=== PATIENT | male | born 1950 | race Caucasian/White ===

== ENCOUNTER 2017-09-05 17:43 | Inpatient (IN) | payer MEDICARE ==
[~2017-09-05] VITALS: Ht 172.7 cm; Wt 64.6 kg
[~2017-09-05 17:43] MED LIST: ABAC1TAB7 PO; ACYC-113 PO; ATOR10TA9 PO; BLOOD PRESSURE MED PO; HYDR5TAB PO; OPIU10TI2 PO; OXYB5TAB7 PO; PREG25CA PO; RITO100C PO; TEMA22.5 PO; [UNRECOGNIZED DRUG - CODE] PO; [UNRECOGNIZED DRUG - OTHER] PO
[2017-09-05] MEDS ORDERED: VANCOMYCIN 1,300 MG in SODIUM CHLORIDE 0.9% 250 ML IV ONE (18:30)
[2017-09-05] MEDS ORDERED: PHARMACOKINETIC CONSULTATION MC ONE (18:30)
[2017-09-05] MEDS ORDERED: VANCOMYCIN PER PHARMACY IV ONE (18:30)
[2017-09-05] MEDS ORDERED: SODIUM CHLORIDE 0.9% 1,000ML IVBOLUS ONE (18:30)
[2017-09-05] MEDS ORDERED: PIPERACILLIN/TAZO/PMX 3.375GM 50 ML IVPB ONE (18:30)
[2017-09-05 18:52] LABS: BASOPHILS % (AUTO) 0 % (0-1); EOSINOPHILS # (AUTO) 0.11 x10^3/uL (0-0.4); EOSINOPHILS % (AUTO) 1 % (1-7); LYMPHOCYTES # (AUTO) 1.14 x10^3/uL (1-3.4); LYMPHOCYTES % (AUTO) 11 % (22-44); MD NO; MEAN CORPUSCULAR HEMOGLOBIN 22.8 pg (27.5-34.5); MEAN CORPUSCULAR HGB CONC 31.5 g/dL (33.2-36.2); MEAN CORPUSCULAR VOLUME 72.4 fL (81-97); MEAN PLATELET VOLUME 9.4 fL (7.4-10.4); MONOCYTES # (AUTO) 1.17 x10^3/uL (0.2-0.8); MONOCYTES % (AUTO) 12 % (2-9); NEUTROPHILS # (AUTO) 7.63 x10^3/uL (1.8-6.8); NEUTROPHILS % (AUTO) 76 % (42-75); PLATELET COUNT 233 x10^3/uL (130-400); RED BLOOD COUNT 3.31 x10^6/uL (4.38-5.82); RED CELL DISTRIBUTION WIDTH 19.3 % (9.4-14.8)
[2017-09-05 19:00] LABS: INTERNATIONAL NORMALIZED RATIO 0.97 (0.93-1.1)
[2017-09-05 19:09] LABS: ANION GAP 7 mmol/L (5-15); CALCIUM 8.4 mg/dL (8.5-10.1); CHLORIDE 103 mmol/L (98-107); CREATININE 2.22 mg/dL (0.7-1.3)
[2017-09-05 19:13] LABS: MICROSCOPIC AUTO
[2017-09-05 19:15] LABS: CULTURE INDICATED? NO
[2017-09-05] MEDS ORDERED: AMLO2.5T2 PO (19:17)
[2017-09-05] MEDS ORDERED: PIPERACILLIN/TAZO/PMX 3.375GM 50 ML ONE (19:57)
[2017-09-05] MEDS ORDERED: morphine SULFATE 10 MG/ML, 1ML IVPush PRN (21:30)
[2017-09-05] MEDS ORDERED: POLYETHYLENE GLYCOL 17 GM PACKET PO PRN (21:30)
[2017-09-05] MEDS ORDERED: VANCOMYCIN PER PHARMACY MC PRN (21:30)
[2017-09-05] MEDS ORDERED: DOCUSATE 100 MG CAPSULE PO PRN (21:30)
[2017-09-05] MEDS ORDERED: ACETAMINOPHEN 325 MG TABLET PO PRN (21:30)
[2017-09-05] MEDS ORDERED: ONDANSETRON 2MG/ML, 2ML IVPush PRN (21:30)
[2017-09-05 22:45] VITALS: BP 105/57
[2017-09-05] MEDS ORDERED: PHARMACOKINETIC MONITORING MC PRN (23:30)
[2017-09-05] MEDS: SODIUM CHLORIDE 0.9% 1,000 ML IV SCH (23:39)
[2017-09-05] MEDS: HYDROcodone/APAP 5/325 TABLET PO PRN (23:39)
[2017-09-06] VITALS (7 sets, daily range): BP systolic 109–120; BP diastolic 52–65
[2017-09-06] MEDS: PIPERACILLIN/TAZO/PMX 3.375GM 50 ML IV SCH ×4 (00:56→18:27)
[2017-09-06 05:37] LABS: ANION GAP 7 mmol/L (5-15); CALCIUM 7.9 mg/dL (8.5-10.1); CHLORIDE 106 mmol/L (98-107); CREATININE 1.86 mg/dL (0.7-1.3)
[2017-09-06 05:47] LABS: MEAN CORPUSCULAR HEMOGLOBIN 22.8 pg (27.5-34.5); MEAN CORPUSCULAR HGB CONC 31.8 g/dL (33.2-36.2); MEAN CORPUSCULAR VOLUME 71.7 fL (81-97); MEAN PLATELET VOLUME 9.3 fL (7.4-10.4); PLATELET COUNT 200 x10^3/uL (130-400); RED CELL DISTRIBUTION WIDTH 19.5 % (9.4-14.8)
[2017-09-06 06:10] LABS: BASOPHILS # (AUTO) 0.03 x10^3/uL (0-0.1); BASOPHILS % (AUTO) 0 % (0-1); EOSINOPHILS # (AUTO) 0.28 x10^3/uL (0-0.4); EOSINOPHILS % (AUTO) 4 % (1-7); LYMPHOCYTES # (AUTO) 1.11 x10^3/uL (1-3.4); LYMPHOCYTES % (AUTO) 15 % (22-44); MD MORPH REVIEW ONLY; MONOCYTES # (AUTO) 1.04 x10^3/uL (0.2-0.8); MONOCYTES % (AUTO) 14 % (2-9); NEUTROPHILS # (AUTO) 4.92 x10^3/uL (1.8-6.8); NEUTROPHILS % (AUTO) 67 % (42-75)
[2017-09-06 06:11] LABS: <PLATELET ESTIMATE> ADEQUATE; <PLT MORPHOLOGY> NORMAL PLT MORPH; ANISOCYTOSIS 1+; MICROCYTOSIS 1+; POLYCHROMASIA 1+
[2017-09-06 06:12] LABS: STOMATOCYTES 1+
[2017-09-06] MEDS ORDERED: FAMOTIDINE 20 MG TABLET PO SCH (09:00)
[2017-09-06] MEDS: AMLODIPINE 2.5 MG TABLET PO SCH (09:00)
[2017-09-06] MEDS: HYDROCORTISONE 5 MG TABLET PO SCH ×2 (09:55→20:09)
[2017-09-06] MEDS: OXYBUTYNIN CHLORIDE 5 MG TABLET PO SCH (09:56)
[2017-09-06] MEDS: PREGABALIN 25 MG CAPSULE PO SCH ×2 (09:56→20:08)
[2017-09-06] MEDS: SENNA/DOCUSATE TABLET PO SCH (09:57)
[2017-09-06] MEDS: ACYCLOVIR 200 MG CAPSULE PO SCH ×2 (09:57→20:08)
[2017-09-06 15:53] LABS: MD YES; MEAN CORPUSCULAR HEMOGLOBIN 23.3 pg (27.5-34.5); MEAN CORPUSCULAR HGB CONC 31.7 g/dL (33.2-36.2); MEAN CORPUSCULAR VOLUME 73.5 fL (81-97); MEAN PLATELET VOLUME 9.5 fL (7.4-10.4); PLATELET COUNT 183 x10^3/uL (130-400); RED BLOOD COUNT 3.41 x10^6/uL (4.38-5.82); RED CELL DISTRIBUTION WIDTH 19.7 % (9.4-14.8)
[2017-09-06 15:55] LABS: <PLATELET ESTIMATE> ADEQUATE; ANISOCYTOSIS 1+; BAND#(MANUAL) 0.09 x10^3/uL; BANDS%(MANUAL) 1 % (0-7); EOS#(MANUAL) 0.37 x10^3/uL (0.0-0.4); EOS% (MANUAL) 4 % (1-7); LARGE PLATELETS 1+; LYMPH#(MANUAL) 1.29 x10^3/uL (1-3.4); LYMPHS% (MANUAL) 14 % (22-44); MICROCYTOSIS 1+; MONOS#(MANUAL) 1.29 x10^3/uL (0.3-2.7); MONOS% (MANUAL) 14 % (2-9); NRBC % (MANUAL) 1 % (0-1); POLYCHROMASIA 1+; SEG#(MANUAL) 6.16 x10^3/uL (1.8-6.8); SEGS% (MANUAL) 67 % (42-75)
[2017-09-06] MEDS: HYDROcodone/APAP 5/325 TABLET PO PRN ×2 (16:27→21:27)
[2017-09-06] MEDS: SODIUM CHLORIDE 0.9% 1,000 ML IV SCH (16:28)
[2017-09-06] MEDS ORDERED: HYDROCORTISONE 10 MG TABLET ONE (19:42)
[2017-09-06] MEDS: ATORVASTATIN 10 MG TABLET PO SCH (20:09)
[2017-09-07] MEDS: PIPERACILLIN/TAZO/PMX 3.375GM 50 ML IV SCH ×4 (00:26→18:31)
[2017-09-07 03:25] VITALS: BP 123/64
[2017-09-07] MEDS: HYDROcodone/APAP 5/325 TABLET PO PRN ×3 (04:08→20:15)
[2017-09-07 05:25] LABS: MEAN CORPUSCULAR HEMOGLOBIN 24.2 pg (27.5-34.5); MEAN CORPUSCULAR VOLUME 73.5 fL (81-97); MEAN PLATELET VOLUME 8.9 fL (7.4-10.4); PLATELET COUNT 192 x10^3/uL (130-400); RED CELL DISTRIBUTION WIDTH 20.4 % (9.4-14.8)
[2017-09-07 05:31] LABS: CALCIUM 8.3 mg/dL (8.5-10.1); CHLORIDE 105 mmol/L (98-107)
[2017-09-07 05:52] LABS: BASOPHILS # (AUTO) 0.04 x10^3/uL (0-0.1); BASOPHILS % (AUTO) 1 % (0-1); EOSINOPHILS # (AUTO) 0.38 x10^3/uL (0-0.4); EOSINOPHILS % (AUTO) 6 % (1-7); LYMPHOCYTES # (AUTO) 0.91 x10^3/uL (1-3.4); LYMPHOCYTES % (AUTO) 13 % (22-44); MD SCAN; MONOCYTES # (AUTO) 0.96 x10^3/uL (0.2-0.8); MONOCYTES % (AUTO) 14 % (2-9); NEUTROPHILS # (AUTO) 4.59 x10^3/uL (1.8-6.8); NEUTROPHILS % (AUTO) 67 % (42-75)
[2017-09-07 05:57] LABS: ALBUMIN 2.4 g/dL (3.4-5.0); ANION GAP 10 mmol/L (5-15); CREATININE 1.76 mg/dL (0.7-1.3)
[2017-09-07 07:29] VITALS: BP 114/61
[2017-09-07] MEDS ORDERED: POTASSIUM CHLORIDE 20 MEQ TAB.ER.PRT PO ONE (07:30)
[2017-09-07] MEDS ORDERED: HYDROCORTISONE 10 MG TABLET ONE ×2 (07:50→20:10)
[2017-09-07] MEDS: PREGABALIN 25 MG CAPSULE PO SCH ×2 (07:55→20:15)
[2017-09-07] MEDS: FAMOTIDINE 20 MG TABLET PO SCH (07:55)
[2017-09-07] MEDS: OXYBUTYNIN CHLORIDE 5 MG TABLET PO SCH (07:55)
[2017-09-07] MEDS: FERROUS SULFATE 325 MG TABLET PO SCH ×2 (07:55→20:15)
[2017-09-07] MEDS: ACYCLOVIR 200 MG CAPSULE PO SCH ×2 (07:55→20:15)
[2017-09-07] MEDS: AMLODIPINE 2.5 MG TABLET PO SCH (07:56)
[2017-09-07] MEDS: HYDROCORTISONE 5 MG TABLET PO SCH ×2 (07:56→20:16)
[2017-09-07] MEDS ORDERED: ABACAVIR SULFATE PO SCH (09:00)
[2017-09-07] MEDS ORDERED: LAMIVUDINE PO SCH (09:00)
[2017-09-07] MEDS: SENNA/DOCUSATE TABLET PO SCH (09:00)
[2017-09-07 09:54] LABS: OCCULT BLOOD POSITIVE (NEGATIVE)
[2017-09-07] MEDS: VANCOMYCIN 1,400 MG in SODIUM CHLORIDE 0.9% 250 ML IV SCH (10:28)
[2017-09-07 14:13] VITALS: BP 104/54
[2017-09-07 19:40] VITALS: BP 130/70
[2017-09-07] MEDS: ATORVASTATIN 10 MG TABLET PO SCH (20:15)
[2017-09-08] MEDS: PIPERACILLIN/TAZO/PMX 3.375GM 50 ML IV SCH ×4 (00:22→18:03)
[2017-09-08 02:16] VITALS: BP 118/67
[2017-09-08] MEDS: HYDROcodone/APAP 5/325 TABLET PO PRN ×2 (05:41→20:40)
[2017-09-08 06:08] LABS: BASOPHILS # (AUTO) 0.02 x10^3/uL (0-0.1); BASOPHILS % (AUTO) 0 % (0-1); EOSINOPHILS # (AUTO) 0.32 x10^3/uL (0-0.4); EOSINOPHILS % (AUTO) 4 % (1-7); LYMPHOCYTES # (AUTO) 0.91 x10^3/uL (1-3.4); LYMPHOCYTES % (AUTO) 12 % (22-44); MD NO; MEAN CORPUSCULAR HEMOGLOBIN 23.5 pg (27.5-34.5); MEAN CORPUSCULAR HGB CONC 31.6 g/dL (33.2-36.2); MEAN CORPUSCULAR VOLUME 74.5 fL (81-97); MEAN PLATELET VOLUME 9.3 fL (7.4-10.4); MONOCYTES # (AUTO) 1.01 x10^3/uL (0.2-0.8); MONOCYTES % (AUTO) 13 % (2-9); NEUTROPHILS # (AUTO) 5.59 x10^3/uL (1.8-6.8); NEUTROPHILS % (AUTO) 71 % (42-75); PLATELET COUNT 247 x10^3/uL (130-400); RED BLOOD COUNT 3.77 x10^6/uL (4.38-5.82); RED CELL DISTRIBUTION WIDTH 20.5 % (9.4-14.8)
[2017-09-08 06:13] LABS: ALBUMIN 2.8 g/dL (3.4-5.0); ANION GAP 6 mmol/L (5-15); CALCIUM 8.6 mg/dL (8.5-10.1); CHLORIDE 104 mmol/L (98-107); CREATININE 1.63 mg/dL (0.7-1.3)
[2017-09-08 06:52] VITALS: BP 93/56
[2017-09-08] MEDS: SENNA/DOCUSATE TABLET PO SCH (09:00)
[2017-09-08] MEDS: RITONAVIR 100 MG TABLET PO SCH ×2 (10:58→21:31)
[2017-09-08] MEDS: AMLODIPINE 2.5 MG TABLET PO SCH (10:59)
[2017-09-08] MEDS: ABACAVIR SULFATE PO SCH (10:59)
[2017-09-08] MEDS: ACYCLOVIR 200 MG CAPSULE PO SCH ×2 (10:59→20:35)
[2017-09-08] MEDS: LAMIVUDINE PO SCH (10:59)
[2017-09-08] MEDS: FAMOTIDINE 20 MG TABLET PO SCH (10:59)
[2017-09-08] MEDS: FERROUS SULFATE 325 MG TABLET PO SCH ×2 (10:59→20:35)
[2017-09-08] MEDS: PREGABALIN 25 MG CAPSULE PO SCH ×2 (10:59→20:35)
[2017-09-08] MEDS ORDERED: HYDROCORTISONE 10 MG TABLET ONE ×2 (11:01→20:33)
[2017-09-08] MEDS: HYDROCORTISONE 5 MG TABLET PO SCH ×2 (11:01→20:36)
[2017-09-08 12:05] VITALS: BP 118/75
[2017-09-08] MEDS: DARUNAVIR 800 MG TABLET PO SCH (12:11)
[2017-09-08 18:36] VITALS: BP 111/70
[2017-09-08] MEDS: ATORVASTATIN 10 MG TABLET PO SCH (20:35)
[2017-09-08] MEDS: VANCOMYCIN 1,400 MG in SODIUM CHLORIDE 0.9% 250 ML IV SCH (23:13)
[2017-09-09] MEDS: PIPERACILLIN/TAZO/PMX 3.375GM 50 ML IV SCH ×4 (01:07→23:40)
[2017-09-09 03:58] VITALS: BP 127/71
[2017-09-09 05:07] LABS: BASOPHILS # (AUTO) 0.05 x10^3/uL (0-0.1); BASOPHILS % (AUTO) 1 % (0-1); EOSINOPHILS # (AUTO) 0.25 x10^3/uL (0-0.4); EOSINOPHILS % (AUTO) 3 % (1-7); LYMPHOCYTES # (AUTO) 1.12 x10^3/uL (1-3.4); LYMPHOCYTES % (AUTO) 15 % (22-44); MD NO; MEAN CORPUSCULAR HEMOGLOBIN 23.4 pg (27.5-34.5); MEAN CORPUSCULAR HGB CONC 31.7 g/dL (33.2-36.2); MEAN PLATELET VOLUME 9.1 fL (7.4-10.4); MONOCYTES # (AUTO) 0.98 x10^3/uL (0.2-0.8); MONOCYTES % (AUTO) 13 % (2-9); NEUTROPHILS # (AUTO) 5.06 x10^3/uL (1.8-6.8); NEUTROPHILS % (AUTO) 68 % (42-75); PLATELET COUNT 262 x10^3/uL (130-400); RED BLOOD COUNT 3.84 x10^6/uL (4.38-5.82); RED CELL DISTRIBUTION WIDTH 20.6 % (9.4-14.8)
[2017-09-09 05:27] LABS: CHLORIDE 107 mmol/L (98-107)
[2017-09-09 06:19] LABS: ALBUMIN 2.6 g/dL (3.4-5.0); ANION GAP 13 mmol/L (5-15); CALCIUM 9.3 mg/dL (8.5-10.1); CREATININE 1.72 mg/dL (0.7-1.3)
[2017-09-09] MEDS: FAMOTIDINE 20 MG TABLET PO SCH (09:00)
[2017-09-09] MEDS: SENNA/DOCUSATE TABLET PO SCH (09:00)
[2017-09-09] MEDS: AMLODIPINE 2.5 MG TABLET PO SCH (09:00)
[2017-09-09] MEDS: PREGABALIN 25 MG CAPSULE PO SCH ×2 (09:00→20:18)
[2017-09-09 09:13] VITALS: BP 129/72
[2017-09-09] MEDS ORDERED: PROPOFOL 10 MG/ML, 20ML ONE (13:24)
[2017-09-09] MEDS ORDERED: ONDANSETRON 2MG/ML, 2ML ONE (13:53)
[2017-09-09] MEDS ORDERED: PROMETHAZINE 25 MG/ML, 1ML ONE (14:03)
[2017-09-09 14:25] VITALS: BP 127/75
[2017-09-09] MEDS ORDERED: PROMETHAZINE 25 MG/ML, 1ML IV PRN (14:30)
[2017-09-09 16:08] LABS: ALBUMIN 2.9 g/dL (3.4-5.0); ANION GAP 9 mmol/L (5-15); CALCIUM 9.1 mg/dL (8.5-10.1); CHLORIDE 104 mmol/L (98-107); CREATININE 1.71 mg/dL (0.7-1.3)
[2017-09-09] MEDS ORDERED: HYDROCORTISONE 10 MG TABLET ONE ×3 (17:02→20:12)
[2017-09-09] MEDS: FERROUS SULFATE 325 MG TABLET PO SCH ×2 (17:28→20:17)
[2017-09-09] MEDS: ACYCLOVIR 200 MG CAPSULE PO SCH ×2 (17:28→20:18)
[2017-09-09] MEDS: HYDROcodone/APAP 5/325 TABLET PO PRN ×2 (17:28→23:44)
[2017-09-09] MEDS: DARUNAVIR 800 MG TABLET PO SCH (17:28)
[2017-09-09] MEDS: RITONAVIR 100 MG TABLET PO SCH ×2 (17:29→20:19)
[2017-09-09] MEDS: HYDROCORTISONE 5 MG TABLET PO SCH ×2 (17:30→20:17)
[2017-09-09 19:11] VITALS: BP 105/60
[2017-09-09] MEDS: ATORVASTATIN 10 MG TABLET PO SCH (20:17)
[2017-09-10 00:12] LABS: MICROSCOPIC INDICATED
[2017-09-10 02:23] VITALS: BP 133/69
[2017-09-10] MEDS: PIPERACILLIN/TAZO/PMX 3.375GM 50 ML IV SCH ×2 (05:23→12:48)
[2017-09-10 05:58] LABS: BASOPHILS # (AUTO) 0.07 x10^3/uL (0-0.1); BASOPHILS % (AUTO) 1 % (0-1); EOSINOPHILS # (AUTO) 0.26 x10^3/uL (0-0.4); EOSINOPHILS % (AUTO) 4 % (1-7); LYMPHOCYTES # (AUTO) 1.38 x10^3/uL (1-3.4); LYMPHOCYTES % (AUTO) 23 % (22-44); MD NO; MEAN CORPUSCULAR HEMOGLOBIN 23.1 pg (27.5-34.5); MEAN CORPUSCULAR HGB CONC 31.1 g/dL (33.2-36.2); MEAN CORPUSCULAR VOLUME 74.3 fL (81-97); MEAN PLATELET VOLUME 8.6 fL (7.4-10.4); MONOCYTES # (AUTO) 0.74 x10^3/uL (0.2-0.8); MONOCYTES % (AUTO) 12 % (2-9); NEUTROPHILS # (AUTO) 3.64 x10^3/uL (1.8-6.8); NEUTROPHILS % (AUTO) 60 % (42-75); PLATELET COUNT 299 x10^3/uL (130-400); RED BLOOD COUNT 3.88 x10^6/uL (4.38-5.82); RED CELL DISTRIBUTION WIDTH 20.6 % (9.4-14.8)
[2017-09-10 06:57] LABS: ALBUMIN 2.8 g/dL (3.4-5.0); ANION GAP 10 mmol/L (5-15); CALCIUM 8.8 mg/dL (8.5-10.1); CHLORIDE 106 mmol/L (98-107); CREATININE 1.74 mg/dL (0.7-1.3)
[2017-09-10 07:56] VITALS: BP 125/70
[2017-09-10] MEDS ORDERED: HYDROCORTISONE 10 MG TABLET ONE (08:52)
[2017-09-10] MEDS: FERROUS SULFATE 325 MG TABLET PO SCH (08:59)
[2017-09-10] MEDS: RITONAVIR 100 MG TABLET PO SCH (08:59)
[2017-09-10] MEDS: ACYCLOVIR 200 MG CAPSULE PO SCH (08:59)
[2017-09-10] MEDS: FAMOTIDINE 20 MG TABLET PO SCH (08:59)
[2017-09-10] MEDS: DARUNAVIR 800 MG TABLET PO SCH (08:59)
[2017-09-10] MEDS: PREGABALIN 25 MG CAPSULE PO SCH (08:59)
[2017-09-10] MEDS: AMLODIPINE 2.5 MG TABLET PO SCH (08:59)
[2017-09-10] MEDS: SENNA/DOCUSATE TABLET PO SCH (09:00)
[2017-09-10] MEDS: LAMIVUDINE PO SCH (09:00)
[2017-09-10] MEDS: ABACAVIR SULFATE PO SCH (09:00)
[2017-09-10] MEDS: HYDROCORTISONE 5 MG TABLET PO SCH (09:01)
[2017-09-10] MEDS: VANCOMYCIN 1,400 MG in SODIUM CHLORIDE 0.9% 250 ML IV SCH (10:39)
[2017-09-10] MEDS ORDERED: LEVOFLOXACIN 250 MG TABLET PO SCH (13:00)
[2017-09-10] MEDS ORDERED: LEVO250T23 PO (13:15)
[2017-09-10] MEDS ORDERED: OMEP20TA9 PO (13:15)
[2017-09-10] MEDS ORDERED: FERR-51 PO (13:15)
[2017-09-10 13:30] VITALS: BP 104/48
== END 2017-09-10 17:15 | DRG 974 ==
LOC: ED 20:06 → EDIP 21:09 → 4NOR 22:45
PROVIDERS: ADMIT Family Medicine; ATTEND Family Medicine
PROC: 0T9B70Z Drainage of Bladder with Drainage Device, Via Natural or Artificial Opening (ICD-10-PCS; principal; 2017-09-05)
PROC: 30233N1 Transfusion of Nonautologous Red Blood Cells into Peripheral Vein, Percutaneous Approach (ICD-10-PCS; 2017-09-06)
PROC: 0DB98ZX Excision of Duodenum, Via Natural or Artificial Opening Endoscopic, Diagnostic (ICD-10-PCS; 2017-09-09)
PROC: 0DB68ZX Excision of Stomach, Via Natural or Artificial Opening Endoscopic, Diagnostic (ICD-10-PCS; 2017-09-09)
DX: A41.9 Sepsis, unspecified organism (principal); J96.01 Acute respiratory failure with hypoxia; B20 Human immunodeficiency virus [HIV] disease; E43 Unspecified severe protein-calorie malnutrition; J15.9 Unspecified bacterial pneumonia; N18.4 Chronic kidney disease, stage 4 (severe); E27.40 Unspecified adrenocortical insufficiency; K92.2 Gastrointestinal hemorrhage, unspecified; F03.90 Unspecified dementia, unspecified severity, without behavioral disturbance, psychotic disturbance, mood disturbance, and anxiety; E78.5 Hyperlipidemia, unspecified; H54.7 Unspecified visual loss; I12.9 Hypertensive chronic kidney disease with stage 1 through stage 4 chronic kidney disease, or unspecified chronic kidney disease; K21.9 Gastro-esophageal reflux disease without esophagitis; K31.7 Polyp of stomach and duodenum; R13.10 Dysphagia, unspecified; R31.29 Other microscopic hematuria; Z66 Do not resuscitate; Z96.611 Presence of right artificial shoulder joint; D50.9 Iron deficiency anemia, unspecified; Z68.21 Body mass index [BMI] 21.0-21.9, adult
CPT/HCPCS: 36415; 36430; 51702; 71045; 78582; 80048; 80202; 81001; 82040; 82272; 82274; 82728; 82962; 83540; 83550; 83605; 83615; 83735; 84466; 85025; 85610; 85730; 86361; 86850; 86900; 86923; 87040; 88305; 93005; J2405; J2543; J2550; J2704; J3370; A9540; A9558; C9898; J2270; J7030; J7050; P9016

== ENCOUNTER 2018-10-28 10:57 | Outpatient (CLI) | payer MEDICARE ==
[~2018-10-28] VITALS: Ht 172.7 cm; Wt 68.1 kg
[2018-10-28 14:22] VITALS: BP 121/72
== END 2018-10-28 23:59 | disposition home or self-care (01) ==
LOC: INFUSION 10:57
PROVIDERS: ATTEND Nurse Practitioner Gerontology
DX: E61.1 Iron deficiency (principal); D64.9 Anemia, unspecified; B20 Human immunodeficiency virus [HIV] disease; K21.9 Gastro-esophageal reflux disease without esophagitis; E78.5 Hyperlipidemia, unspecified; I12.9 Hypertensive chronic kidney disease with stage 1 through stage 4 chronic kidney disease, or unspecified chronic kidney disease; N18.4 Chronic kidney disease, stage 4 (severe); E78.00 Pure hypercholesterolemia, unspecified; Z96.611 Presence of right artificial shoulder joint
CPT/HCPCS: 96365; J1439; J7050

== ENCOUNTER 2018-11-04 07:43 | Outpatient (CLI) | payer MEDICARE ==
[~2018-11-04] VITALS: Ht 172.7 cm; Wt 68.1 kg
[~2018-11-04 07:43] MED LIST changes: +AMLO2.5T2 PO; +FERR-51 PO; +LEVO250T23 PO; +OMEP20TA9 PO
[2018-11-04 11:00] VITALS: BP 109/58
[2018-11-04] MEDS ORDERED: FERRIC CARBOXYMALTOSE 750 MG in SODIUM CHLORIDE 0.9% 250 ML IV ONE (11:30)
== END 2018-11-04 23:59 | disposition home or self-care (01) ==
LOC: INFUSION 07:43
PROVIDERS: ATTEND Nurse Practitioner Gerontology
DX: D64.9 Anemia, unspecified (principal); E61.1 Iron deficiency; B20 Human immunodeficiency virus [HIV] disease; I12.9 Hypertensive chronic kidney disease with stage 1 through stage 4 chronic kidney disease, or unspecified chronic kidney disease; N18.4 Chronic kidney disease, stage 4 (severe); K21.9 Gastro-esophageal reflux disease without esophagitis; E78.5 Hyperlipidemia, unspecified; E78.00 Pure hypercholesterolemia, unspecified; Z96.611 Presence of right artificial shoulder joint
CPT/HCPCS: 96365; J1439; J7050

== ENCOUNTER 2019-02-01 10:36 | Emergency (ER) | payer MEDICARE ==
[~2019-02-01] VITALS: Ht 172.7 cm; Wt 65.0 kg
[~2019-02-01 10:36] MED LIST changes: +OXYB5TAB10 PO; -OXYB5TAB7 PO; +[UNRECOGNIZED DRUG - CODE] PO; -[UNRECOGNIZED DRUG - CODE] PO
--- NOTE | 2019-02-01 10:53 | NUR ---
CODE 250. PT HAD MGLF AT FRONT. NO DZY/LOC. LAC ON R LEG. PT'S AOX4. RESPS EVEN AND UNLABORED. +HIV. HX OF STROKE WITH LEFT SIDED WEAKNESS. ALL MONITORS IN PLACE. CALL LIGHT WITHIN REACH. EKG DONE AT BEDSIDE BY EMT. EDMD AT BEDSIDE TO EVALUATE AT THIS TIME.
[2019-02-01] MEDS ORDERED: LIDOCAINE-MPF 1%, 5ML ONE (11:45)
[2019-02-01] MEDS ORDERED: NEOSPORIN OINT. PKT 1 PACKET ONE (11:55)
[2019-02-01] MEDS ORDERED: FERRIC CARBOXYMALTOSE 750 MG in SODIUM CHLORIDE 0.9% 250 ML IV ONE (12:00)
[2019-02-01] MEDS ORDERED: LIDOCAINE 1%, 10ML INFIL ONE (12:00)
--- NOTE | 2019-02-01 12:23 | NUR ---
THIS RN WAS NOT ABLE TO EST IV. CONOR RN IS TRYING TO EST IV AT THIS TIME.
[2019-02-01 12:40] VITALS: BP 147/69
--- NOTE | 2019-02-01 12:49 | NUR ---
BREAK RN FOR PRIMARY RN DANIEL. PT RESTING IN POSITION OF COMFORT. ALL NEEDS MET AND ADDRESSED. IV MEDICATION INFUSING PER ORDER ON IV PUMP. VSS. NSR ON MONITOR. CALL LIGHT IN REACH. FALL PRECAUTIONS IN PLACE.
--- NOTE | 2019-02-01 13:22 | NUR ---
BEDSIDE REPORT AND CARE BACK TO PRIMARY RN DANIEL
--- NOTE | 2019-02-01 13:32 | NUR ---
Patient given discharge instructions and they have confirmed that they understand the instructions. Patient ambulatory with steady gait with pt's service dog.
== END 2019-02-01 13:34 | disposition home or self-care (01) ==
LOC: ED 13:32
DX: S81.811A Laceration without foreign body, right lower leg, initial encounter (principal); I10 Essential (primary) hypertension; H54.7 Unspecified visual loss; Z87.891 Personal history of nicotine dependence; W22.09XA Striking against other stationary object, initial encounter; Y93.89 Activity, other specified; Y92.009 Unspecified place in unspecified non-institutional (private) residence as the place of occurrence of the external cause; Y99.8 Other external cause status
CPT/HCPCS: 12031; 73590; 93005; 96365; 99284; J1439; J7050

== ENCOUNTER 2019-03-18 05:08 | Emergency (ER) | payer MEDICARE ==
[~2019-03-18] VITALS: Ht 172.7 cm; Wt 70.0 kg
[2019-03-18] MEDS ORDERED: DIPH,PERTUSS(ACELL),TET VAC/PF 0.5 ML IM-VACC ONE ×2 (05:24→05:30)
[2019-03-18] MEDS ORDERED: LIDOCAINE-MPF 1%, 5ML ONE (05:24)
[2019-03-18] MEDS ORDERED: LIDOCAINE-MPF 1%, 5ML INFIL ONE (05:30)
[2019-03-18] MEDS ORDERED: NEOSPORIN OINT. PKT 1 PACKET ONE (06:14)
--- NOTE | 2019-03-18 06:33 | NUR ---
WOUND BANDAGED. PT EXTENSIVELY EDUCATED ON WOUND CARE DUE TO HIS MEDICAL HX. PT ABLE TO REPEAT BACK WOUND CARE TEACHINGS.
[2019-03-18 06:37] VITALS: BP 139/84
--- NOTE | 2019-03-18 06:44 | NUR ---
report from OCTAVIO Cabrera. pt resting in room. no needs expressed. call light within reach. awaiting dc paperwork.
[2019-03-26] MEDS ORDERED: NEVI400T5 PO (14:12)
[2019-03-26] MEDS ORDERED: DARU800T2 PO (14:14)
[2019-03-27] MEDS ORDERED: LINE600T12 PO (13:05)
[2019-03-27] MEDS ORDERED: AMOX1TAB61 PO (13:12)
== END 2019-03-18 07:37 | disposition home or self-care (01) ==
LOC: ED 06:50
DX: S61.412A Laceration without foreign body of left hand, initial encounter (principal); I10 Essential (primary) hypertension; E78.00 Pure hypercholesterolemia, unspecified; K21.9 Gastro-esophageal reflux disease without esophagitis; X58.XXXA Exposure to other specified factors, initial encounter; Y93.89 Activity, other specified; Y92.89 Other specified places as the place of occurrence of the external cause; Y99.8 Other external cause status
CPT/HCPCS: 13132; 13133; 90471; 90715; 99283; 99285

== ENCOUNTER 2019-04-04 21:43 | Inpatient (IN) | payer MEDICARE ==
[~2019-04-04] VITALS: Ht 172.7 cm; Wt 62.6 kg
[~2019-04-04 21:43] MED LIST changes: +AMOX1TAB61 PO; +DARU800T2 PO; +LINE600T12 PO; +NEVI400T5 PO
[2019-04-04 22:13] LABS: MEAN CORPUSCULAR HEMOGLOBIN 33.1 pg (27.5-34.5); MEAN CORPUSCULAR HGB CONC 33.3 g/dL (33.2-36.2); MEAN CORPUSCULAR VOLUME 99.4 fL (81-97); MEAN PLATELET VOLUME 7.9 fL (7.4-10.4); PLATELET COUNT 320 x10^3/uL (130-400); RED BLOOD COUNT 3.99 x10^6/uL (4.38-5.82); RED CELL DISTRIBUTION WIDTH 22.4 % (9.4-14.8)
[2019-04-04 22:24] LABS: ALANINE AMINOTRANSFERASE 30 U/L (12-78); ALBUMIN 3.5 g/dL (3.4-5.0); ANION GAP 8 mmol/L (5-15); CALCIUM 9.3 mg/dL (8.5-10.1); CHLORIDE 102 mmol/L (98-107); CREATININE 2.59 mg/dL (0.7-1.3)
[2019-04-04 22:29] LABS: ALKALINE PHOSPHATASE 81 U/L (45-117); BILIRUBIN,TOTAL 0.5 mg/dL (0.2-1.0); TOTAL PROTEIN 7.6 g/dL (6.4-8.2); TROPONIN I < 0.015 ng/mL (0.000-0.045)
[2019-04-04 22:34] LABS: BASOPHILS # (AUTO) 0.04 x10^3/uL (0-0.1); BASOPHILS % (AUTO) 0 % (0-1); EOSINOPHILS # (AUTO) 0.01 x10^3/uL (0-0.4); EOSINOPHILS % (AUTO) 0 % (1-7); LYMPHOCYTES # (AUTO) 1.71 x10^3/uL (1-3.4); LYMPHOCYTES % (AUTO) 13 % (22-44); MD SCAN; MONOCYTES # (AUTO) 0.67 x10^3/uL (0.2-0.8); MONOCYTES % (AUTO) 5 % (2-9); NEUTROPHILS # (AUTO) 11.03 x10^3/uL (1.8-6.8); NEUTROPHILS % (AUTO) 82 % (42-75)
[2019-04-04] MEDS ORDERED: SODIUM CHLORIDE 0.9% 1,000 ML IV ONE (23:21)
[2019-04-04] MEDS ORDERED: ONDANSETRON 2MG/ML, 2ML IVPush PRN (23:30)
[2019-04-05] MEDS ORDERED: SODIUM CHLORIDE 0.9% 1,000 ML IV SCH (00:12)
[2019-04-05] MEDS ORDERED: PHARMACY MAY ADJ FOR RENAL FX MC PRN (00:30)
[2019-04-05] MEDS ORDERED: BISACODYL 10 MG SUPP PR PRN (00:30)
[2019-04-05] MEDS ORDERED: hydrALAzine 20 MG/ML, 1ML IVPush PRN (00:30)
[2019-04-05] MEDS ORDERED: LIDODERM 5% PATCH TD PRN (00:30)
[2019-04-05] MEDS ORDERED: ACETAMINOPHEN 325 MG TABLET PO PRN (00:30)
[2019-04-05] MEDS ORDERED: ONDANSETRON 2MG/ML, 2ML IVPush PRN (00:30)
[2019-04-05 00:40] VITALS: BP 121/77
[2019-04-05] MEDS: MORPHINE SULFATE 4 MG/ML, 1ML IVPush PRN ×2 (01:02→08:04)
[2019-04-05] MEDS: LINEZOLID PMX 600MG/300ML 300 ML IV SCH ×2 (01:02→12:37)
[2019-04-05 04:40] LABS: MICROSCOPIC NOT IND
[2019-04-05 04:43] LABS: CULTURE INDICATED? NO
[2019-04-05 06:57] VITALS: BP 127/78
[2019-04-05] MEDS ORDERED: ROCURONIUM 10MG/ML,5ML ONE (10:14)
[2019-04-05] MEDS ORDERED: PROPOFOL 10 MG/ML, 20ML ONE (10:14)
[2019-04-05] MEDS ORDERED: FENTANYL PF 100 MCG/2ML ONE (10:17)
[2019-04-05] MEDS ORDERED: ONDANSETRON 2MG/ML, 2ML ONE (10:41)
[2019-04-05] MEDS ORDERED: EPHEDRINE 50 MG/ML, 1ML ONE (10:41)
[2019-04-05] MEDS ORDERED: PHENYLEPHRINE 10 MG/ML ONE (10:41)
[2019-04-05] MEDS: morphine SULFATE 10 MG/ML, 1ML IVPush PRN ×3 (12:38→19:37)
[2019-04-05 13:11] VITALS: BP 126/81
[2019-04-05] MEDS: SODIUM CHLORIDE 0.9% 1,000 ML IV SCH (15:51)
[2019-04-05 20:43] VITALS: BP 124/67
[2019-04-06] MEDS: LINEZOLID PMX 600MG/300ML 300 ML IV SCH ×2 (00:23→12:16)
[2019-04-06 00:48] VITALS: BP 120/67
[2019-04-06] MEDS: SODIUM CHLORIDE 0.9% 1,000 ML IV SCH ×3 (03:08→21:38)
[2019-04-06] MEDS: morphine SULFATE 10 MG/ML, 1ML IVPush PRN (04:54)
[2019-04-06 05:14] LABS: MEAN CORPUSCULAR HEMOGLOBIN 33.1 pg (27.5-34.5); MEAN CORPUSCULAR HGB CONC 32.8 g/dL (33.2-36.2); MEAN CORPUSCULAR VOLUME 100.8 fL (81-97); MEAN PLATELET VOLUME 8.1 fL (7.4-10.4); PLATELET COUNT 231 x10^3/uL (130-400); RED CELL DISTRIBUTION WIDTH 22.2 % (9.4-14.8)
[2019-04-06 05:24] LABS: ANION GAP 6 mmol/L (5-15); CHLORIDE 105 mmol/L (98-107); CREATININE 1.76 mg/dL (0.7-1.3)
[2019-04-06 05:49] LABS: BASOPHILS # (AUTO) 0.04 x10^3/uL (0-0.1); BASOPHILS % (AUTO) 0 % (0-1); EOSINOPHILS # (AUTO) 0.05 x10^3/uL (0-0.4); EOSINOPHILS % (AUTO) 1 % (1-7); LYMPHOCYTES # (AUTO) 1.25 x10^3/uL (1-3.4); LYMPHOCYTES % (AUTO) 12 % (22-44); MD SCAN; MONOCYTES # (AUTO) 0.55 x10^3/uL (0.2-0.8); MONOCYTES % (AUTO) 5 % (2-9); NEUTROPHILS # (AUTO) 8.36 x10^3/uL (1.8-6.8); NEUTROPHILS % (AUTO) 82 % (42-75)
[2019-04-06 09:11] VITALS: BP 117/74
[2019-04-06 14:56] VITALS: BP 126/76
[2019-04-06 21:44] VITALS: BP 148/79
[2019-04-07 01:37] VITALS: BP 150/76
[2019-04-07] MEDS: SODIUM CHLORIDE 0.9% 1,000 ML IV SCH (05:20)
[2019-04-07 05:24] LABS: BASOPHILS # (AUTO) 0.03 x10^3/uL (0-0.1); BASOPHILS % (AUTO) 0 % (0-1); EOSINOPHILS # (AUTO) 0.03 x10^3/uL (0-0.4); EOSINOPHILS % (AUTO) 0 % (1-7); LYMPHOCYTES # (AUTO) 1.39 x10^3/uL (1-3.4); LYMPHOCYTES % (AUTO) 15 % (22-44); MD NO; MEAN CORPUSCULAR HEMOGLOBIN 33.2 pg (27.5-34.5); MEAN CORPUSCULAR HGB CONC 32.9 g/dL (33.2-36.2); MEAN PLATELET VOLUME 7.4 fL (7.4-10.4); MONOCYTES # (AUTO) 0.55 x10^3/uL (0.2-0.8); MONOCYTES % (AUTO) 6 % (2-9); NEUTROPHILS # (AUTO) 7.17 x10^3/uL (1.8-6.8); NEUTROPHILS % (AUTO) 78 % (42-75); PLATELET COUNT 209 x10^3/uL (130-400); RED BLOOD COUNT 3.64 x10^6/uL (4.38-5.82); RED CELL DISTRIBUTION WIDTH 21.5 % (9.4-14.8)
[2019-04-07 05:36] LABS: ANION GAP 8 mmol/L (5-15); CALCIUM 8.5 mg/dL (8.5-10.1); CHLORIDE 106 mmol/L (98-107); CREATININE 1.39 mg/dL (0.7-1.3)
[2019-04-07] MEDS ORDERED: DEXTROSE 50%, 50ML SYRINGE IVPush ONE (05:50)
[2019-04-07 07:52] VITALS: BP 133/74
[2019-04-07] MEDS ORDERED: POTASSIUM CHLORIDE 40 MEQ in SODIUM CHLORIDE 0.9% 500 ML IV ONE (11:30)
[2019-04-07] MEDS: D5%-0.45NACL+KCL 20MEQ 1,000 ML IV SCH ×2 (12:04→22:55)
[2019-04-07 12:13] VITALS: BP 137/82
[2019-04-07] MEDS ORDERED: OMNIPAQUE 350 MG/ML, 100ML BOTTLE ONE (18:29)
[2019-04-07] MEDS: morphine SULFATE 10 MG/ML, 1ML IVPush PRN (18:54)
[2019-04-07 19:46] VITALS: BP 158/73
[2019-04-08 02:37] VITALS: BP 139/74
[2019-04-08] MEDS: morphine SULFATE 10 MG/ML, 1ML IVPush PRN (04:34)
[2019-04-08] MEDS: D5%-0.45NACL+KCL 20MEQ 1,000 ML IV SCH ×3 (05:40→21:30)
[2019-04-08 05:52] LABS: BASOPHILS # (AUTO) 0.03 x10^3/uL (0-0.1); BASOPHILS % (AUTO) 0 % (0-1); EOSINOPHILS # (AUTO) 0.07 x10^3/uL (0-0.4); EOSINOPHILS % (AUTO) 1 % (1-7); LYMPHOCYTES # (AUTO) 0.83 x10^3/uL (1-3.4); LYMPHOCYTES % (AUTO) 12 % (22-44); MD NO; MEAN CORPUSCULAR HEMOGLOBIN 33.5 pg (27.5-34.5); MEAN CORPUSCULAR HGB CONC 33.4 g/dL (33.2-36.2); MEAN CORPUSCULAR VOLUME 100.4 fL (81-97); MEAN PLATELET VOLUME 7.5 fL (7.4-10.4); MONOCYTES # (AUTO) 0.62 x10^3/uL (0.2-0.8); MONOCYTES % (AUTO) 9 % (2-9); NEUTROPHILS # (AUTO) 5.56 x10^3/uL (1.8-6.8); NEUTROPHILS % (AUTO) 78 % (42-75); PLATELET COUNT 196 x10^3/uL (130-400); RED CELL DISTRIBUTION WIDTH 20.8 % (9.4-14.8)
[2019-04-08 05:56] LABS: ANION GAP 7 mmol/L (5-15); CALCIUM 8.5 mg/dL (8.5-10.1); CHLORIDE 107 mmol/L (98-107)
[2019-04-08 05:57] LABS: CREATININE 1.25 mg/dL (0.7-1.3)
[2019-04-08 07:26] VITALS: BP 137/79
[2019-04-08 12:33] VITALS: BP 135/70
[2019-04-08] MEDS ORDERED: TPN PER PHARMACY MC PRN (19:00)
[2019-04-08 19:37] VITALS: BP 126/95
[2019-04-09 00:41] VITALS: BP 111/75
[2019-04-09] MEDS: morphine SULFATE 10 MG/ML, 1ML IVPush PRN (03:14)
[2019-04-09] MEDS: D5%-0.45NACL+KCL 20MEQ 1,000 ML IV SCH ×2 (05:15→13:40)
[2019-04-09 06:07] LABS: ALBUMIN 2.7 g/dL (3.4-5.0); ANION GAP 5 mmol/L (5-15); CALCIUM 9.1 mg/dL (8.5-10.1); CHLORIDE 105 mmol/L (98-107)
[2019-04-09 06:18] LABS: ALANINE AMINOTRANSFERASE 27 U/L (12-78); ALKALINE PHOSPHATASE 82 U/L (45-117); BILIRUBIN,TOTAL 0.5 mg/dL (0.2-1.0); PREALBUMIN 14.8 mg/dL (20.0-40.0); TOTAL PROTEIN 6.7 g/dL (6.4-8.2); TRIGLYCERIDES 224 mg/dL (50-200)
[2019-04-09 09:50] VITALS: BP 119/70
[2019-04-09 15:00] VITALS: BP 119/68
[2019-04-09] MEDS ORDERED: ARTIFICIAL TEARS 15 DROP/ML BOTTLE EACHEYE PRN (15:30)
[2019-04-09] MEDS: ERYTHROMYCIN OPHTH 0.5%, 1GM EACHEYE SCH ×2 (16:00→21:57)
[2019-04-09] MEDS ORDERED: DEXTROSE 10% 500 ML IV PRN (17:00)
[2019-04-09] MEDS ORDERED: FILTER, DISP 1.2 MICRON FOR TPN/PVN IV PRN (17:00)
[2019-04-09] MEDS ORDERED: DEXTROSE 50%, 50ML SYRINGE IVPush PRN (17:00)
[2019-04-09] MEDS ORDERED: AMINO ACID 10% 750 ML, DEXTROSE 70% 350 ML, FAT EMUL/SMOF TPN 200 ML, STERILE WATER 1,0... IV SCH (17:00)
[2019-04-09] MEDS: HEPARIN 5,000 UNITS/ML, 1ML SQ SCH (18:15)
[2019-04-09] MEDS: D5%-0.45% NACL 1,000 ML IV SCH (19:24)
[2019-04-09 19:37] VITALS: BP 145/85
[2019-04-10] MEDS: INSULIN REGULAR MEDIUM DOSE Q6H X 48HRS SQ-INSULIN SCH ×4 (01:30→19:51)
[2019-04-10] MEDS: HEPARIN 5,000 UNITS/ML, 1ML SQ SCH ×3 (02:00→18:07)
[2019-04-10 02:06] VITALS: BP 136/83
[2019-04-10 05:16] LABS: ANION GAP 6 mmol/L (5-15); CALCIUM 8.6 mg/dL (8.5-10.1); CHLORIDE 105 mmol/L (98-107); CREATININE 1.21 mg/dL (0.7-1.3)
[2019-04-10] MEDS: ERYTHROMYCIN OPHTH 0.5%, 1GM EACHEYE SCH ×4 (05:59→21:34)
[2019-04-10 07:22] VITALS: BP 133/75
[2019-04-10 13:58] VITALS: BP 126/78
[2019-04-10] MEDS: AMPICILLIN/SULBACTAM 3 GM in SODIUM CHLORIDE 0.9% 100 ML IV SCH ×2 (15:45→21:34)
[2019-04-10] MEDS ORDERED: DEXTROSE 70% IV SCH (17:00)
[2019-04-10] MEDS ORDERED: AMINO ACID 10% IV SCH (17:00)
[2019-04-10] MEDS ORDERED: SMOF TPN IV SCH (17:00)
[2019-04-10] MEDS ORDERED: FAT EMUL IV SCH (17:00)
[2019-04-10] MEDS ORDERED: [UNRECOGNIZED DRUG - OTHER] IV SCH (17:00)
[2019-04-10] MEDS: FILTER, DISP 1.2 MICRON FOR TPN/PVN IV PRN (18:07)
[2019-04-10] MEDS ORDERED: DOXYCYCLINE 100MG TABLET PO SCH (21:00)
[2019-04-10 21:10] VITALS: BP 159/81
[2019-04-10] MEDS: DOXYCYCLINE 100 MG in DEXTROSE 5% 250 ML IV SCH (23:08)
[2019-04-11] MEDS: INSULIN REGULAR MEDIUM DOSE Q6H X 48HRS SQ-INSULIN SCH ×4 (01:17→23:11)
[2019-04-11 01:37] LABS: MICROSCOPIC AUTO
[2019-04-11 01:43] LABS: CULTURE INDICATED? NO
[2019-04-11] MEDS: HEPARIN 5,000 UNITS/ML, 1ML SQ SCH ×3 (01:56→17:10)
[2019-04-11 02:13] VITALS: BP 151/79
[2019-04-11] MEDS: D5%-0.45% NACL 1,000 ML IV SCH (04:16)
[2019-04-11] MEDS: AMPICILLIN/SULBACTAM 3 GM in SODIUM CHLORIDE 0.9% 100 ML IV SCH ×4 (04:23→23:11)
[2019-04-11 04:44] LABS: BASOPHILS # (AUTO) 0.06 x10^3/uL (0-0.1); BASOPHILS % (AUTO) 1 % (0-1); EOSINOPHILS # (AUTO) 0.09 x10^3/uL (0-0.4); EOSINOPHILS % (AUTO) 1 % (1-7); LYMPHOCYTES # (AUTO) 1.38 x10^3/uL (1-3.4); LYMPHOCYTES % (AUTO) 18 % (22-44); MD NO; MEAN CORPUSCULAR HEMOGLOBIN 33.1 pg (27.5-34.5); MEAN CORPUSCULAR HGB CONC 33.2 g/dL (33.2-36.2); MEAN CORPUSCULAR VOLUME 99.7 fL (81-97); MEAN PLATELET VOLUME 8.4 fL (7.4-10.4); MONOCYTES # (AUTO) 1.08 x10^3/uL (0.2-0.8); MONOCYTES % (AUTO) 14 % (2-9); NEUTROPHILS % (AUTO) 66 % (42-75); PLATELET COUNT 161 x10^3/uL (130-400); RED BLOOD COUNT 3.66 x10^6/uL (4.38-5.82); RED CELL DISTRIBUTION WIDTH 20.6 % (9.4-14.8)
[2019-04-11 04:58] LABS: ANION GAP 6 mmol/L (5-15); CALCIUM 8.7 mg/dL (8.5-10.1); CHLORIDE 108 mmol/L (98-107)
[2019-04-11 04:59] LABS: CREATININE 1.26 mg/dL (0.7-1.3)
[2019-04-11] MEDS: ERYTHROMYCIN OPHTH 0.5%, 1GM EACHEYE SCH ×4 (05:58→23:57)
[2019-04-11 07:23] VITALS: BP 129/81
[2019-04-11] MEDS: DOXYCYCLINE 100 MG in DEXTROSE 5% 250 ML IV SCH (13:31)
[2019-04-11 14:15] VITALS: BP 125/75
[2019-04-11] MEDS ORDERED: [UNRECOGNIZED DRUG - OTHER] IV SCH (17:00)
[2019-04-11] MEDS ORDERED: DEXTROSE 70% IV SCH (17:00)
[2019-04-11] MEDS ORDERED: AMINO ACID 10% IV SCH (17:00)
[2019-04-11] MEDS ORDERED: FAT EMUL IV SCH (17:00)
[2019-04-11] MEDS ORDERED: SMOF TPN IV SCH (17:00)
[2019-04-11] MEDS: FILTER, DISP 1.2 MICRON FOR TPN/PVN IV PRN (17:10)
[2019-04-11 19:48] VITALS: BP 132/72
[2019-04-12 00:16] VITALS: BP 149/66
[2019-04-12] MEDS: DOXYCYCLINE 100 MG in DEXTROSE 5% 250 ML IV SCH (02:47)
[2019-04-12] MEDS: HEPARIN 5,000 UNITS/ML, 1ML SQ SCH ×2 (02:58→10:17)
[2019-04-12] MEDS: AMPICILLIN/SULBACTAM 3 GM in SODIUM CHLORIDE 0.9% 100 ML IV SCH (05:53)
[2019-04-12] MEDS: ERYTHROMYCIN OPHTH 0.5%, 1GM EACHEYE SCH (05:58)
[2019-04-12 06:00] LABS: BASOPHILS # (AUTO) 0.05 x10^3/uL (0-0.1); BASOPHILS % (AUTO) 1 % (0-1); EOSINOPHILS # (AUTO) 0.13 x10^3/uL (0-0.4); EOSINOPHILS % (AUTO) 2 % (1-7); LYMPHOCYTES # (AUTO) 1.64 x10^3/uL (1-3.4); LYMPHOCYTES % (AUTO) 21 % (22-44); MD NO; MEAN CORPUSCULAR HGB CONC 32.9 g/dL (33.2-36.2); MEAN CORPUSCULAR VOLUME 100.3 fL (81-97); MEAN PLATELET VOLUME 8.6 fL (7.4-10.4); MONOCYTES # (AUTO) 1.17 x10^3/uL (0.2-0.8); MONOCYTES % (AUTO) 15 % (2-9); NEUTROPHILS # (AUTO) 4.98 x10^3/uL (1.8-6.8); NEUTROPHILS % (AUTO) 63 % (42-75); PLATELET COUNT 198 x10^3/uL (130-400); RED BLOOD COUNT 3.45 x10^6/uL (4.38-5.82)
[2019-04-12 06:04] LABS: ALBUMIN 2.3 g/dL (3.4-5.0); ANION GAP 7 mmol/L (5-15); CALCIUM 8.5 mg/dL (8.5-10.1); CHLORIDE 108 mmol/L (98-107)
[2019-04-12 06:07] LABS: ALANINE AMINOTRANSFERASE 18 U/L (12-78); ALKALINE PHOSPHATASE 69 U/L (45-117); BILIRUBIN,TOTAL 0.3 mg/dL (0.2-1.0); CREATININE 1.34 mg/dL (0.7-1.3); TOTAL PROTEIN 5.6 g/dL (6.4-8.2)
[2019-04-12] MEDS: morphine SULFATE 10 MG/ML, 1ML IVPush PRN (06:31)
[2019-04-12 07:41] VITALS: BP 155/95
[2019-04-12] MEDS ORDERED: GLUCAGON 1 MG IM PRN (08:00)
[2019-04-12] MEDS ORDERED: DEXTROSE 50%, 50ML SYRINGE IVPush PRN (08:00)
[2019-04-12] MEDS ORDERED: DEXTROSE 4 GM TAB.CHEW PO PRN (08:00)
[2019-04-12] MEDS ORDERED: INSULIN REGULAR MEDIUM DOSE QDAY SQ-INSULIN SCH (09:00)
[2019-04-12] MEDS ORDERED: SODIUM CHLORIDE FLUSH 10ML SYR IVF SCH (09:00)
[2019-04-12] MEDS ORDERED: HYDROmorphone 2 MG/ML, 1ML IVPush PRN (10:30)
[2019-04-12] MEDS ORDERED: MORPHINE SULFATE 4 MG/ML, 1ML IVPush PRN (10:30)
[2019-04-12] MEDS ORDERED: LORazepam INTENSOL 2 MG/ML SL PRN (10:30)
== END 2019-04-12 14:15 | disposition hospice, home (50) | DRG 380 ==
LOC: ED 21:56 → EDIP 23:26 → 4NE 04-05 00:19 → 4NW 04-09 05:35
PROVIDERS: ADMIT Internal Medicine; ATTEND Hospitalist
PROC: 0DD98ZX Extraction of Duodenum, Via Natural or Artificial Opening Endoscopic, Diagnostic (ICD-10-PCS; principal; 2019-04-04)
PROC: 0DB98ZX Excision of Duodenum, Via Natural or Artificial Opening Endoscopic, Diagnostic (ICD-10-PCS; 2019-04-04)
PROC: 02HV33Z Insertion of Infusion Device into Superior Vena Cava, Percutaneous Approach (ICD-10-PCS; 2019-04-10)
PROC: B548ZZA Ultrasonography of Superior Vena Cava, Guidance (ICD-10-PCS; 2019-04-10)
PROC: 3E0436Z Introduction of Nutritional Substance into Central Vein, Percutaneous Approach (ICD-10-PCS; 2019-04-10)
DX: K31.5 Obstruction of duodenum (principal); N17.0 Acute kidney failure with tubular necrosis; J18.9 Pneumonia, unspecified organism; B20 Human immunodeficiency virus [HIV] disease; G93.40 Encephalopathy, unspecified; E46 Unspecified protein-calorie malnutrition; B25.8 Other cytomegaloviral diseases; I69.354 Hemiplegia and hemiparesis following cerebral infarction affecting left non-dominant side; D49.0 Neoplasm of unspecified behavior of digestive system; I12.9 Hypertensive chronic kidney disease with stage 1 through stage 4 chronic kidney disease, or unspecified chronic kidney disease; K21.9 Gastro-esophageal reflux disease without esophagitis; Z96.611 Presence of right artificial shoulder joint; R29.6 Repeated falls; N18.3 Chronic kidney disease, stage 3 (moderate); H54.3 Unqualified visual loss, both eyes; F03.90 Unspecified dementia, unspecified severity, without behavioral disturbance, psychotic disturbance, mood disturbance, and anxiety; E78.5 Hyperlipidemia, unspecified; E11.22 Type 2 diabetes mellitus with diabetic chronic kidney disease; Z87.891 Personal history of nicotine dependence
CPT/HCPCS: 36415; 36573; 70450; 71045; 71260; 74018; 74176; 74177; 80048; 80053; 81001; 81003; 82140; 82378; 82607; 82962; 83605; 83690; 83735; 84100; 84134; 84145; 84443; 84478; 84484; 85025; 86301; 88305; 93005; 93306; 93970; G0378; J0295; J0610; J1644; J2020; J2405; J2704; J3010; J3475; J3480; J7060; Q9967; C1751; J1720; J2270; J2370; J3420; J3490; J7030; J7040

== ENCOUNTER 2019-04-12 13:57 | Inpatient (IN) | payer OTHER ==
[~2019-04-12] VITALS: Ht 172.7 cm; Wt 62.6 kg
[2019-04-12] MEDS ORDERED: SODIUM CHLORIDE 0.9% 1,000 ML IV SCH (14:27)
[2019-04-12] MEDS ORDERED: MORPHINE SULFATE 4 MG/ML, 1ML IVPush PRN ×3 (14:30)
[2019-04-12] MEDS ORDERED: PROCHLORPERAZINE 5 MG/ML, 2ML IVPush PRN (14:30)
[2019-04-12] MEDS ORDERED: ONDANSETRON 2MG/ML, 2ML IVPush PRN (14:30)
[2019-04-12] MEDS ORDERED: SCOPOLAMINE PATCH, 1.5MG PATCH.TD72 TD SCH (14:30)
[2019-04-12] MEDS: LORazepam 2 MG/ML, 1ML IVPush SCH ×3 (15:42→23:26)
[2019-04-13] MEDS: LORazepam 2 MG/ML, 1ML IVPush SCH ×4 (03:39→18:08)
[2019-04-14] MEDS: LORazepam 2 MG/ML, 1ML IVPush SCH ×4 (01:30→10:30)
[2019-04-14] MEDS: ATROPINE OPHTH SOLN 1%, 5ML BC PRN ×4 (04:00→07:45)
[2019-04-14] MEDS ORDERED: LORazepam 2 MG/ML, 1ML IVPush PRN (08:30)
== END 2019-04-14 11:15 | disposition expired | DRG 975 ==
LOC: 4NW 14:18
PROVIDERS: ADMIT Internal Medicine; ATTEND Internal Medicine
DX: J18.9 Pneumonia, unspecified organism (principal); C17.0 Malignant neoplasm of duodenum; B20 Human immunodeficiency virus [HIV] disease; K31.5 Obstruction of duodenum; N17.9 Acute kidney failure, unspecified; H30.899 Other chorioretinal inflammations, unspecified eye; B25.8 Other cytomegaloviral diseases; I69.354 Hemiplegia and hemiparesis following cerebral infarction affecting left non-dominant side; D53.9 Nutritional anemia, unspecified; F03.90 Unspecified dementia, unspecified severity, without behavioral disturbance, psychotic disturbance, mood disturbance, and anxiety; H54.7 Unspecified visual loss; I35.1 Nonrheumatic aortic (valve) insufficiency; K21.0 Gastro-esophageal reflux disease with esophagitis; N18.3 Chronic kidney disease, stage 3 (moderate); Z66 Do not resuscitate; Z74.01 Bed confinement status; Z96.611 Presence of right artificial shoulder joint
CPT/HCPCS: G0378; J2270; J2060